=== PATIENT | female | born 1990 | race American Indian/Alaskan Native ===

== ENCOUNTER 2017-10-03 12:20 | Emergency (ER) | payer MEDICAID ==
[~2017-10-03] VITALS: Ht 162.6 cm; Wt 91.7 kg
[2017-10-03 12:23] VITALS: BP 119/74
[2017-10-03] MEDS ORDERED: LORA1TAB PO (12:58)
== END 2017-10-03 13:12 | disposition home or self-care (01) ==
LOC: ER 12:21
DX: F15.90 Other stimulant use, unspecified, uncomplicated (principal); F10.20 Alcohol dependence, uncomplicated; Y90.9 Presence of alcohol in blood, level not specified; Z88.5 Allergy status to narcotic agent; Z79.899 Other long term (current) drug therapy
CPT/HCPCS: 99283

== ENCOUNTER 2019-03-11 16:35 | Emergency (ER) | payer MEDICAID ==
[~2019-03-11] VITALS: Ht 162.6 cm; Wt 90.9 kg
[2019-03-11] MEDS ORDERED: bacitracin 15gm ointment TP ONE (17:15)
[2019-03-11] MEDS ORDERED: LIDOcaine 1% W/epiNEPHrine 1:200,000 10ml vial IJ ONE (17:15)
[2019-03-11 17:59] VITALS: BP 115/65
== END 2019-03-11 18:01 ==
LOC: ER 16:36
DX: S01.81XA Laceration without foreign body of other part of head, initial encounter (principal); E11.9 Type 2 diabetes mellitus without complications; Z88.5 Allergy status to narcotic agent; V49.88XA Car occupant (driver) (passenger) injured in other specified transport accidents, initial encounter; Y93.89 Activity, other specified; Y92.413 State road as the place of occurrence of the external cause; Y99.9 Unspecified external cause status
CPT/HCPCS: 12001; 12011; 70450; 99284

== ENCOUNTER 2019-04-11 16:23 | Emergency (ER) | payer MEDICAID | END 2019-04-11 17:28 | disposition left against medical advice (07) | LOC: ER 16:23 | DX: N93.9 Abnormal uterine and vaginal bleeding, unspecified (principal); Z53.21 Procedure and treatment not carried out due to patient leaving prior to being seen by health care provider ==

== ENCOUNTER 2021-08-01 07:59 | Emergency (ER) | payer MEDICAID ==
[~2021-08-01] VITALS: Ht 160 cm; Wt 90.9 kg
[2021-08-01 08:09] VITALS: BP 101/74
[2021-08-01] MEDS ORDERED: IBUP-1985 PO (08:28)
== END 2021-08-01 09:08 | disposition home or self-care (01) ==
LOC: ER 08:00
DX: S80.01XA Contusion of right knee, initial encounter (principal); E11.9 Type 2 diabetes mellitus without complications; Z72.89 Other problems related to lifestyle; Z88.8 Allergy status to other drugs, medicaments and biological substances; Z79.899 Other long term (current) drug therapy; V00.121A Fall from non-in-line roller-skates, initial encounter; Y93.51 Activity, roller skating (inline) and skateboarding; Y92.89 Other specified places as the place of occurrence of the external cause; Y99.8 Other external cause status
CPT/HCPCS: 99284